=== PATIENT | male | born 1945 | race Caucasian/White ===

== ENCOUNTER 2022-05-17 08:04 | Inpatient (IN) ==
[2022-05-17] MEDS ORDERED: Acetaminophen 325 MG TABLET PO PRN (11:41)
[2022-05-17] MEDS ORDERED: Naloxone 0.4 MG/ML INJ IVP PRN (11:41)
[2022-05-17] MEDS ORDERED: Ondansetron 4 MG/2 ML VIAL IVP PRN (11:41)
[2022-05-17] MEDS ORDERED: *HR* Dextrose 50 % in Water (Syg) 50 ML SYRINGE IVP PRN (11:46)
[2022-05-17] MEDS ORDERED: D5% in Water 1,000 ML IVC PRN (11:46)
[2022-05-17] MEDS ORDERED: Dextrose Gel 15 GM/37.5 ML TUBE PO PRN ×2 (11:46)
[2022-05-17] MEDS ORDERED: Fluticasone Propionate Nasal 50 MCG/SPRAY BOTTLE NS PRN (12:38)
[2022-05-17] MEDS ORDERED: *HR* LORazepam 1 MG TABLET PO SCH (13:00)
[2022-05-17] MEDS: QUEtiapine Fumarate 25 MG TABLET PO SCH ×3 (13:23→21:00)
[2022-05-17] MEDS: *HR* LORazepam 0.5 MG TABLET PO SCH ×3 (13:30→20:59)
[2022-05-17] MEDS: BuPROPion SR (12 HR) 100 MG TABLET PO SCH ×2 (13:30→20:59)
[2022-05-17] MEDS: lisinopriL 5 MG TABLET PO SCH (13:34)
[2022-05-17] MEDS: Ondansetron ODT 4 MG TAB.RAPDIS SL PRN (14:19)
[2022-05-17] MEDS: Insulin LISPRO 300 UNITS/3 ML VIAL SUBQ SCH ×2 (16:42→21:32)
[2022-05-17] MEDS: traZODone 50 MG TABLET PO SCH (20:59)
[2022-05-17] MEDS: Melatonin 3 MG TABLET PO SCH (20:59)
[2022-05-18 06:33] LABS: Hematocrit 35.8 % (37.5-50.1); Hemoglobin 11.9 g/dL (12.9-16.9); Mean Corpuscular HGB Conc 33.2 g/dL (31.6-35.5); Mean Corpuscular Hemoglobin 30.1 pg (28.0-33.3); Mean Corpuscular Volume 90.6 fL (83.0-100.0); Mean Platelet Volume 8.7 fL (9.4-12.4); Platelet Count 208 K/mcL (140-400); Red Blood Count 3.95 M/mcL (4.19-5.50); White Blood Count 8.4 K/mcL (4.3-11.1)
[2022-05-18 06:48] LABS: BUN/Creatinine Ratio 16 (6-26); Blood Urea Nitrogen 21 mg/dL (8-23); Calcium 8.2 mg/dL (8.6-10.3); Carbon Dioxide 25 mEq/L (23-29); Chloride 100 mEq/L (98-107); Glucose 116 mg/dL (70-105); Osmolality,Calculated 276 (280-300); Potassium 4.8 mEq/L (3.5-5.1); Sodium 131 mEq/L (136-145); eGFR For African Americans > 60 (> 60); eGFR For Non-African Americans 53 (> 60)
[2022-05-18] MEDS: Insulin LISPRO 300 UNITS/3 ML VIAL SUBQ SCH ×4 (06:56→20:06)
[2022-05-18] MEDS ORDERED: NON-FORMULARY MEDICATION 1 EACH EACH (Cinnamon Bark [Cinnamon] 500 MG Capsule) PO SCH (09:00)
[2022-05-18] MEDS: Multivit/Ca/Min/Fe/FA 1 TAB TABLET PO SCH (09:36)
[2022-05-18] MEDS: Loratadine 10 MG TABLET PO SCH (09:36)
[2022-05-18] MEDS: QUEtiapine Fumarate 25 MG TABLET PO SCH ×4 (09:36→20:05)
[2022-05-18] MEDS: Finasteride 5 MG TABLET PO SCH (09:36)
[2022-05-18] MEDS: Aspirin Enteric Coated 81 MG Tablet PO SCH (09:36)
[2022-05-18] MEDS: *HR* LORazepam 0.5 MG TABLET PO SCH ×3 (09:36→20:10)
[2022-05-18] MEDS: BuPROPion SR (12 HR) 100 MG TABLET PO SCH ×2 (09:37→20:05)
[2022-05-18] MEDS: lisinopriL 5 MG TABLET PO SCH (09:37)
[2022-05-18] MEDS: 0.9 % Sodium Chloride 1,000 ML IVC SCH (16:09)
[2022-05-18] MEDS: Melatonin 3 MG TABLET PO SCH (20:05)
[2022-05-18] MEDS: traZODone 50 MG TABLET PO SCH (20:06)
[2022-05-19] MEDS: 0.9 % Sodium Chloride 1,000 ML IVC SCH ×3 (02:45→23:14)
[2022-05-19] MEDS ORDERED: *HR* Enoxaparin 30 MG/0.3 ML SYRINGE SQ SCH (06:00)
[2022-05-19] MEDS: Insulin LISPRO 300 UNITS/3 ML VIAL SUBQ SCH ×4 (07:10→19:49)
[2022-05-19 07:21] LABS: BUN/Creatinine Ratio 13 (6-26); Blood Urea Nitrogen 13 mg/dL (8-23); Carbon Dioxide 26 mEq/L (23-29); Chloride 105 mEq/L (98-107); Glucose 117 mg/dL (70-105); Magnesium 1.8 mg/dL (1.6-2.6); Osmolality,Calculated 285 (280-300); Potassium 4.3 mEq/L (3.5-5.1); Sodium 137 mEq/L (136-145); eGFR For African Americans > 60 (> 60); eGFR For Non-African Americans > 60 (> 60)
[2022-05-19] MEDS: Loratadine 10 MG TABLET PO SCH (08:20)
[2022-05-19] MEDS: QUEtiapine Fumarate 25 MG TABLET PO SCH ×4 (08:20→19:39)
[2022-05-19] MEDS: Aspirin Enteric Coated 81 MG Tablet PO SCH (08:20)
[2022-05-19] MEDS: *HR* LORazepam 0.5 MG TABLET PO SCH ×3 (08:20→19:39)
[2022-05-19] MEDS: Finasteride 5 MG TABLET PO SCH (08:21)
[2022-05-19] MEDS: Multivit/Ca/Min/Fe/FA 1 TAB TABLET PO SCH (08:21)
[2022-05-19] MEDS: BuPROPion SR (12 HR) 100 MG TABLET PO SCH ×2 (08:21→19:38)
[2022-05-19] MEDS: Melatonin 3 MG TABLET PO SCH (19:38)
[2022-05-19] MEDS: traZODone 50 MG TABLET PO SCH (19:39)
[2022-05-19] MEDS: traZODone 50 MG TABLET PO PRN (23:22)
[2022-05-20] MEDS: traZODone 50 MG TABLET PO PRN ×2 (05:27→23:24)
[2022-05-20] MEDS ORDERED: *HR* Enoxaparin 40 MG/0.4 ML SYRINGE SQ SCH (06:00)
[2022-05-20 08:27] LABS: Hematocrit 40.5 % (37.5-50.1); Hemoglobin 13.6 g/dL (12.9-16.9); Mean Corpuscular HGB Conc 33.6 g/dL (31.6-35.5); Mean Corpuscular Hemoglobin 30.8 pg (28.0-33.3); Mean Corpuscular Volume 91.8 fL (83.0-100.0); Mean Platelet Volume 9.1 fL (9.4-12.4); Platelet Count 242 K/mcL (140-400); Red Blood Count 4.41 M/mcL (4.19-5.50); Red Cell Distribution Width 13.8 % (11.5-14.5); White Blood Count 6.2 K/mcL (4.3-11.1)
[2022-05-20 08:39] LABS: BUN/Creatinine Ratio 11 (6-26); Blood Urea Nitrogen 10 mg/dL (8-23); Calcium 8.9 mg/dL (8.6-10.3); Carbon Dioxide 26 mEq/L (23-29); Chloride 101 mEq/L (98-107); Glucose 119 mg/dL (70-105); Osmolality,Calculated 280 (280-300); Potassium 4.3 mEq/L (3.5-5.1); Sodium 135 mEq/L (136-145); eGFR For African Americans > 60 (> 60); eGFR For Non-African Americans > 60 (> 60)
[2022-05-20] MEDS: Insulin LISPRO 300 UNITS/3 ML VIAL SUBQ SCH ×4 (09:02→21:27)
[2022-05-20] MEDS: Aspirin Enteric Coated 81 MG Tablet PO SCH (09:03)
[2022-05-20] MEDS: *HR* LORazepam 0.5 MG TABLET PO SCH ×4 (09:03→20:29)
[2022-05-20] MEDS: Multivit/Ca/Min/Fe/FA 1 TAB TABLET PO SCH (09:03)
[2022-05-20] MEDS: QUEtiapine Fumarate 25 MG TABLET PO SCH ×4 (09:03→20:29)
[2022-05-20] MEDS: 0.9 % Sodium Chloride 1,000 ML IVC SCH (09:03)
[2022-05-20] MEDS: BuPROPion SR (12 HR) 100 MG TABLET PO SCH ×2 (09:03→20:28)
[2022-05-20] MEDS: Loratadine 10 MG TABLET PO SCH (09:03)
[2022-05-20] MEDS: Finasteride 5 MG TABLET PO SCH (09:03)
[2022-05-20] MEDS: Ondansetron ODT 4 MG TAB.RAPDIS SL PRN ×2 (09:10→20:29)
[2022-05-20] MEDS: Sennosides/Docusate Sodium TABLET PO SCH ×2 (11:38→20:29)
[2022-05-20] MEDS: polyethylene glycoL 3350 17 GM POWD.PACK PO SCH (11:38)
[2022-05-20] MEDS: traZODone 50 MG TABLET PO SCH (20:28)
[2022-05-20] MEDS: Melatonin 3 MG TABLET PO SCH (20:28)
[2022-05-21] MEDS: Ondansetron ODT 4 MG TAB.RAPDIS SL PRN ×2 (05:48→09:29)
[2022-05-21 07:12] LABS: Hemoglobin 13.5 g/dL (12.9-16.9); Mean Corpuscular HGB Conc 34.6 g/dL (31.6-35.5); Mean Corpuscular Volume 89.4 fL (83.0-100.0); Mean Platelet Volume 8.9 fL (9.4-12.4); Platelet Count 259 K/mcL (140-400); Red Blood Count 4.36 M/mcL (4.19-5.50); Red Cell Distribution Width 13.6 % (11.5-14.5); White Blood Count 6.8 K/mcL (4.3-11.1)
[2022-05-21 07:46] LABS: BUN/Creatinine Ratio 10 (6-26); Blood Urea Nitrogen 10 mg/dL (8-23); Carbon Dioxide 27 mEq/L (23-29); Chloride 99 mEq/L (98-107); Glucose 117 mg/dL (70-105); Osmolality,Calculated 276 (280-300); Potassium 4.3 mEq/L (3.5-5.1); Sodium 133 mEq/L (136-145); eGFR For African Americans > 60 (> 60); eGFR For Non-African Americans > 60 (> 60)
[2022-05-21] MEDS: Finasteride 5 MG TABLET PO SCH (09:26)
[2022-05-21] MEDS: BuPROPion SR (12 HR) 100 MG TABLET PO SCH (09:27)
[2022-05-21] MEDS: Multivit/Ca/Min/Fe/FA 1 TAB TABLET PO SCH (09:27)
[2022-05-21] MEDS: *HR* LORazepam 0.5 MG TABLET PO SCH ×3 (09:27→18:25)
[2022-05-21] MEDS: Sennosides/Docusate Sodium TABLET PO SCH (09:27)
[2022-05-21] MEDS: Aspirin Enteric Coated 81 MG Tablet PO SCH (09:27)
[2022-05-21] MEDS: polyethylene glycoL 3350 17 GM POWD.PACK PO SCH (09:28)
[2022-05-21] MEDS: Loratadine 10 MG TABLET PO SCH (09:28)
[2022-05-21] MEDS: QUEtiapine Fumarate 25 MG TABLET PO SCH ×3 (09:28→18:25)
[2022-05-21] MEDS: Insulin LISPRO 300 UNITS/3 ML VIAL SUBQ SCH ×3 (09:32→18:09)
[2022-05-21] MEDS ORDERED: Mag Hydrox/Al Hydrox/Simeth 30 ML UDC PO PRN (12:45)
[2022-05-21 18:45] VITALS: BP 132/82; PULSE 82; RESP 16; TEMP 98.1; O2SAT 94
== END 2022-05-21 19:00 | disposition other institution (70) | DRG 683 ==
LOC: INPPIK
PROVIDERS: ADMIT Nurse Practitioner Family; ATTEND Nurse Practitioner Family

== ENCOUNTER 2022-05-21 09:56 | Inpatient (IN) ==
[2022-05-21] MEDS ORDERED: Fluticasone Propionate Nasal 50 MCG/SPRAY BOTTLE NS PRN (15:39)
[2022-05-21] MEDS: BuPROPion SR (12 HR) 100 MG TABLET PO SCH (21:40)
[2022-05-21] MEDS: Ondansetron ODT 4 MG TAB.RAPDIS SL PRN (21:41)
[2022-05-21] MEDS: traZODone 50 MG TABLET PO SCH (21:41)
[2022-05-21] MEDS: Melatonin 3 MG TABLET PO SCH (21:42)
[2022-05-21] MEDS: QUEtiapine Fumarate 25 MG TABLET PO SCH (21:42)
[2022-05-21] MEDS: *HR* LORazepam 0.5 MG TABLET PO SCH (21:42)
[2022-05-22] MEDS ORDERED: *HR* Enoxaparin 40 MG/0.4 ML SYRINGE SQ SCH (07:00)
[2022-05-22 07:29] LABS: Basophils % 0.4 %; Eosinophils # 0.2 K/mcL (0.0-0.6); Eosinophils % 2.9 %; Hematocrit 38.3 % (37.5-50.1); Hemoglobin 12.7 g/dL (12.9-16.9); Immature Granulocytes % 0.4 % (0-4); Lymphocytes # 1.3 K/mcL (0.6-4.6); Lymphocytes % 17.2 %; Mean Corpuscular HGB Conc 33.2 g/dL (31.6-35.5); Mean Corpuscular Hemoglobin 30.1 pg (28.0-33.3); Mean Corpuscular Volume 90.8 fL (83.0-100.0); Mean Platelet Volume 8.8 fL (9.4-12.4); Monocytes # 0.7 K/mcL (0.0-1.3); Monocytes % 8.9 %; Neutrophils # 5.3 K/mcL (1.6-8.9); Platelet Count 257 K/mcL (140-400); Red Blood Count 4.22 M/mcL (4.19-5.50); Red Cell Distribution Width 13.7 % (11.5-14.5); Segmented Neutrophils % 70.2 %; White Blood Count 7.6 K/mcL (4.3-11.1)
[2022-05-22 07:41] LABS: BUN/Creatinine Ratio 11 (6-26); Blood Urea Nitrogen 11 mg/dL (8-23); Calcium 8.5 mg/dL (8.6-10.3); Carbon Dioxide 26 mEq/L (23-29); Chloride 101 mEq/L (98-107); Glucose 113 mg/dL (70-105); Osmolality,Calculated 278 (280-300); Potassium 4.3 mEq/L (3.5-5.1); Sodium 134 mEq/L (136-145); eGFR For African Americans > 60 (> 60); eGFR For Non-African Americans > 60 (> 60)
[2022-05-22] MEDS: QUEtiapine Fumarate 25 MG TABLET PO SCH ×4 (07:53→22:32)
[2022-05-22] MEDS: *HR* LORazepam 0.5 MG TABLET PO SCH ×4 (07:53→22:31)
[2022-05-22] MEDS: BuPROPion SR (12 HR) 100 MG TABLET PO SCH ×2 (07:54→22:30)
[2022-05-22] MEDS: lisinopriL 5 MG TABLET PO SCH (08:01)
[2022-05-22] MEDS: Aspirin Enteric Coated 81 MG Tablet PO SCH (08:02)
[2022-05-22] MEDS: Finasteride 5 MG TABLET PO SCH (08:02)
[2022-05-22] MEDS: *HR* Metformin 500 MG TABLET PO SCH (08:02)
[2022-05-22] MEDS: Loratadine 10 MG TABLET PO SCH (08:03)
[2022-05-22] MEDS: (Cinnamon Bark [Cinnamon] 500 MG Capsule) PO SCH (12:21)
[2022-05-22] MEDS: Melatonin 3 MG TABLET PO SCH (22:31)
[2022-05-22] MEDS: traZODone 50 MG TABLET PO SCH (22:31)
[2022-05-23] MEDS ORDERED: Bisacodyl 10 MG RECTAL SUPPOSITORY RC PRN (01:10)
[2022-05-23] MEDS: traZODone 50 MG TABLET PO PRN (03:24)
[2022-05-23] MEDS: lisinopriL 5 MG TABLET PO SCH (09:35)
[2022-05-23] MEDS: Aspirin Enteric Coated 81 MG Tablet PO SCH (09:35)
[2022-05-23] MEDS: Finasteride 5 MG TABLET PO SCH (09:35)
[2022-05-23] MEDS: Loratadine 10 MG TABLET PO SCH (09:36)
[2022-05-23] MEDS: *HR* LORazepam 0.5 MG TABLET PO SCH ×4 (09:36→19:55)
[2022-05-23] MEDS: Ondansetron ODT 4 MG TAB.RAPDIS SL PRN (09:36)
[2022-05-23] MEDS: QUEtiapine Fumarate 25 MG TABLET PO SCH ×4 (09:38→19:55)
[2022-05-23] MEDS: BuPROPion SR (12 HR) 100 MG TABLET PO SCH ×2 (09:39→19:53)
[2022-05-23] MEDS: *HR* Metformin 500 MG TABLET PO SCH (09:39)
[2022-05-23] MEDS: Sennosides/Docusate Sodium TABLET PO SCH ×2 (09:39→19:55)
[2022-05-23] MEDS: Mag Hydrox/Al Hydrox/Simeth 30 ML UDC PO PRN (09:40)
[2022-05-23] MEDS: polyethylene glycoL 3350 17 GM POWD.PACK PO SCH (09:41)
[2022-05-23] MEDS: (Cinnamon Bark [Cinnamon] 500 MG Capsule) PO SCH (09:42)
[2022-05-23] MEDS: Melatonin 3 MG TABLET PO SCH (19:53)
[2022-05-23] MEDS: traZODone 50 MG TABLET PO SCH (19:54)
[2022-05-24] MEDS: traZODone 50 MG TABLET PO PRN (04:14)
[2022-05-24] MEDS: Sennosides/Docusate Sodium TABLET PO SCH ×2 (09:02→20:11)
[2022-05-24] MEDS: BuPROPion SR (12 HR) 100 MG TABLET PO SCH ×2 (09:02→20:10)
[2022-05-24] MEDS: *HR* Metformin 500 MG TABLET PO SCH (09:03)
[2022-05-24] MEDS: Aspirin Enteric Coated 81 MG Tablet PO SCH (09:03)
[2022-05-24] MEDS: Finasteride 5 MG TABLET PO SCH (09:03)
[2022-05-24] MEDS: QUEtiapine Fumarate 25 MG TABLET PO SCH ×4 (09:04→20:11)
[2022-05-24] MEDS: *HR* LORazepam 0.5 MG TABLET PO SCH ×4 (09:04→20:11)
[2022-05-24] MEDS: Ondansetron ODT 4 MG TAB.RAPDIS SL PRN (09:04)
[2022-05-24] MEDS: Loratadine 10 MG TABLET PO SCH (09:04)
[2022-05-24] MEDS: lisinopriL 5 MG TABLET PO SCH (09:04)
[2022-05-24] MEDS: (Cinnamon Bark [Cinnamon] 500 MG Capsule) PO SCH (09:05)
[2022-05-24] MEDS: polyethylene glycoL 3350 17 GM POWD.PACK PO SCH (09:06)
[2022-05-24] MEDS: Melatonin 3 MG TABLET PO SCH (20:10)
[2022-05-24] MEDS: traZODone 50 MG TABLET PO SCH (20:11)
[2022-05-25] MEDS: *HR* Metformin 500 MG TABLET PO SCH (08:07)
[2022-05-25] MEDS: BuPROPion SR (12 HR) 100 MG TABLET PO SCH ×2 (08:07→20:38)
[2022-05-25] MEDS: Finasteride 5 MG TABLET PO SCH (08:08)
[2022-05-25] MEDS: QUEtiapine Fumarate 25 MG TABLET PO SCH ×4 (08:08→20:38)
[2022-05-25] MEDS: Aspirin Enteric Coated 81 MG Tablet PO SCH (08:08)
[2022-05-25] MEDS: Loratadine 10 MG TABLET PO SCH (08:08)
[2022-05-25] MEDS: lisinopriL 5 MG TABLET PO SCH (08:08)
[2022-05-25] MEDS: *HR* LORazepam 0.5 MG TABLET PO SCH ×4 (08:08→20:39)
[2022-05-25] MEDS: Sennosides/Docusate Sodium TABLET PO SCH ×2 (08:09→20:39)
[2022-05-25] MEDS: polyethylene glycoL 3350 17 GM POWD.PACK PO SCH (08:09)
[2022-05-25] MEDS: (Cinnamon Bark [Cinnamon] 500 MG Capsule) PO SCH (08:09)
[2022-05-25] MEDS: Ondansetron ODT 4 MG TAB.RAPDIS SL PRN (16:45)
[2022-05-25] MEDS: traZODone 50 MG TABLET PO SCH (20:38)
[2022-05-25] MEDS: Melatonin 3 MG TABLET PO SCH (20:38)
[2022-05-26] MEDS: traZODone 50 MG TABLET PO PRN ×2 (01:06→22:56)
[2022-05-26] MEDS: Ondansetron ODT 4 MG TAB.RAPDIS SL PRN (07:32)
[2022-05-26] MEDS: polyethylene glycoL 3350 17 GM POWD.PACK PO SCH (09:42)
[2022-05-26] MEDS: QUEtiapine Fumarate 25 MG TABLET PO SCH ×4 (09:44→21:49)
[2022-05-26] MEDS: Sennosides/Docusate Sodium TABLET PO SCH ×2 (09:44→21:46)
[2022-05-26] MEDS: lisinopriL 5 MG TABLET PO SCH (09:44)
[2022-05-26] MEDS: Finasteride 5 MG TABLET PO SCH (09:44)
[2022-05-26] MEDS: BuPROPion SR (12 HR) 100 MG TABLET PO SCH ×2 (09:44→21:49)
[2022-05-26] MEDS: *HR* LORazepam 0.5 MG TABLET PO SCH ×4 (09:44→21:47)
[2022-05-26] MEDS: Aspirin Enteric Coated 81 MG Tablet PO SCH (09:44)
[2022-05-26] MEDS: Loratadine 10 MG TABLET PO SCH (09:44)
[2022-05-26] MEDS: *HR* Metformin 500 MG TABLET PO SCH (09:45)
[2022-05-26] MEDS: (Cinnamon Bark [Cinnamon] 500 MG Capsule) PO SCH (09:45)
[2022-05-26] MEDS: Mag Hydrox/Al Hydrox/Simeth 30 ML UDC PO PRN (11:51)
[2022-05-26] MEDS: calcium polycarbophiL 625 MG TABLET PO SCH (18:07)
[2022-05-26] MEDS: Melatonin 3 MG TABLET PO SCH (21:46)
[2022-05-26] MEDS: traZODone 50 MG TABLET PO SCH (21:49)
[2022-05-27 01:53] LABS: Basophils # 0.1 K/mcL (0.0-0.2); Basophils % 0.6 %; Eosinophils # 0.2 K/mcL (0.0-0.6); Eosinophils % 2.1 %; Hematocrit 35.3 % (37.5-50.1); Hemoglobin 11.9 g/dL (12.9-16.9); Immature Granulocytes % 0.9 % (0-4); Lymphocytes # 1.4 K/mcL (0.6-4.6); Mean Corpuscular HGB Conc 33.7 g/dL (31.6-35.5); Mean Corpuscular Hemoglobin 30.2 pg (28.0-33.3); Mean Corpuscular Volume 89.6 fL (83.0-100.0); Mean Platelet Volume 8.5 fL (9.4-12.4); Monocytes # 0.7 K/mcL (0.0-1.3); Monocytes % 7.5 %; Neutrophils # 6.7 K/mcL (1.6-8.9); Platelet Count 237 K/mcL (140-400); Red Blood Count 3.94 M/mcL (4.19-5.50); Red Cell Distribution Width 13.7 % (11.5-14.5); Segmented Neutrophils % 73.9 %
[2022-05-27 02:12] LABS: BUN/Creatinine Ratio 13 (6-26); Blood Urea Nitrogen 12 mg/dL (8-23); Calcium 8.8 mg/dL (8.6-10.3); Carbon Dioxide 25 mEq/L (23-29); Chloride 100 mEq/L (98-107); Glucose 117 mg/dL (70-105); Osmolality,Calculated 277 (280-300); Potassium 3.9 mEq/L (3.5-5.1); Sodium 133 mEq/L (136-145); eGFR For African Americans > 60 (> 60); eGFR For Non-African Americans > 60 (> 60)
[2022-05-27] MEDS: Ondansetron ODT 4 MG TAB.RAPDIS SL PRN ×2 (02:15→20:06)
[2022-05-27] MEDS: polyethylene glycoL 3350 17 GM POWD.PACK PO SCH (07:56)
[2022-05-27] MEDS: *HR* Metformin 500 MG TABLET PO SCH (07:56)
[2022-05-27] MEDS: BuPROPion SR (12 HR) 100 MG TABLET PO SCH ×2 (07:56→20:05)
[2022-05-27] MEDS: lisinopriL 5 MG TABLET PO SCH (07:56)
[2022-05-27] MEDS: Sennosides/Docusate Sodium TABLET PO SCH ×2 (07:57→20:06)
[2022-05-27] MEDS: calcium polycarbophiL 625 MG TABLET PO SCH (07:57)
[2022-05-27] MEDS: Finasteride 5 MG TABLET PO SCH (07:57)
[2022-05-27] MEDS: Loratadine 10 MG TABLET PO SCH (07:57)
[2022-05-27] MEDS: Aspirin Enteric Coated 81 MG Tablet PO SCH (07:57)
[2022-05-27] MEDS: *HR* LORazepam 0.5 MG TABLET PO SCH ×4 (07:57→20:05)
[2022-05-27] MEDS: QUEtiapine Fumarate 25 MG TABLET PO SCH ×4 (07:57→20:05)
[2022-05-27] MEDS: Melatonin 3 MG TABLET PO SCH (20:05)
[2022-05-27] MEDS: traZODone 50 MG TABLET PO SCH (20:06)
[2022-05-27 21:29] LABS: Basophils # 0.1 K/mcL (0.0-0.2); Basophils % 0.7 %; Eosinophils # 0.2 K/mcL (0.0-0.6); Eosinophils % 2.1 %; Hemoglobin 11.7 g/dL (12.9-16.9); Immature Granulocytes % 0.6 % (0-4); Lymphocytes % 13.9 %; Mean Corpuscular HGB Conc 32.5 g/dL (31.6-35.5); Mean Corpuscular Hemoglobin 29.8 pg (28.0-33.3); Mean Corpuscular Volume 91.8 fL (83.0-100.0); Monocytes # 0.5 K/mcL (0.0-1.3); Monocytes % 6.8 %; Neutrophils # 5.3 K/mcL (1.6-8.9); Platelet Count 244 K/mcL (140-400); Red Blood Count 3.92 M/mcL (4.19-5.50); Red Cell Distribution Width 14.2 % (11.5-14.5); Segmented Neutrophils % 75.9 %
[2022-05-27] MEDS: traZODone 50 MG TABLET PO PRN (22:28)
[2022-05-27] MEDS: Mag Hydrox/Al Hydrox/Simeth 30 ML UDC PO PRN (22:31)
[2022-05-28] MEDS ORDERED: *HR* OxyCODONE Immed Rel 5 MG TABLET PO ONE ×2 (01:09→03:48)
[2022-05-28] MEDS ORDERED: *HR* LORazepam 0.5 MG TABLET PO ONE (05:45)
[2022-05-28 06:05] LABS: Hematocrit 37.1 % (37.5-50.1); Hemoglobin 12.4 g/dL (12.9-16.9); Mean Corpuscular HGB Conc 33.4 g/dL (31.6-35.5); Mean Corpuscular Volume 89.8 fL (83.0-100.0); Mean Platelet Volume 8.5 fL (9.4-12.4); Platelet Count 248 K/mcL (140-400); Red Blood Count 4.13 M/mcL (4.19-5.50); Red Cell Distribution Width 13.6 % (11.5-14.5); White Blood Count 8.9 K/mcL (4.3-11.1)
[2022-05-28] MEDS: Aspirin Enteric Coated 81 MG Tablet PO SCH (08:30)
[2022-05-28] MEDS: Sennosides/Docusate Sodium TABLET PO SCH ×2 (08:30→20:06)
[2022-05-28] MEDS: BuPROPion SR (12 HR) 100 MG TABLET PO SCH ×2 (08:30→20:05)
[2022-05-28] MEDS: Finasteride 5 MG TABLET PO SCH (08:30)
[2022-05-28] MEDS: QUEtiapine Fumarate 25 MG TABLET PO SCH ×4 (08:30→20:05)
[2022-05-28] MEDS: *HR* Metformin 500 MG TABLET PO SCH (08:31)
[2022-05-28] MEDS: lisinopriL 5 MG TABLET PO SCH (08:31)
[2022-05-28] MEDS: *HR* LORazepam 0.5 MG TABLET PO SCH ×4 (08:31→21:05)
[2022-05-28] MEDS: Loratadine 10 MG TABLET PO SCH (08:31)
[2022-05-28] MEDS: calcium polycarbophiL 625 MG TABLET PO SCH (08:32)
[2022-05-28] MEDS: polyethylene glycoL 3350 17 GM POWD.PACK PO SCH (08:32)
[2022-05-28] MEDS: Melatonin 3 MG TABLET PO SCH (20:05)
[2022-05-28] MEDS: traZODone 50 MG TABLET PO SCH (21:05)
[2022-05-29] MEDS: Aspirin Enteric Coated 81 MG Tablet PO SCH (07:51)
[2022-05-29] MEDS: lisinopriL 5 MG TABLET PO SCH (07:51)
[2022-05-29] MEDS: Finasteride 5 MG TABLET PO SCH (07:51)
[2022-05-29] MEDS: Loratadine 10 MG TABLET PO SCH (07:52)
[2022-05-29] MEDS: QUEtiapine Fumarate 25 MG TABLET PO SCH ×4 (07:52→23:23)
[2022-05-29] MEDS: *HR* Metformin 500 MG TABLET PO SCH (07:52)
[2022-05-29] MEDS: *HR* LORazepam 0.5 MG TABLET PO SCH ×4 (07:52→23:24)
[2022-05-29] MEDS: BuPROPion SR (12 HR) 100 MG TABLET PO SCH ×2 (07:52→23:23)
[2022-05-29] MEDS: Sennosides/Docusate Sodium TABLET PO SCH ×2 (07:53→23:21)
[2022-05-29] MEDS: calcium polycarbophiL 625 MG TABLET PO SCH (07:53)
[2022-05-29] MEDS: polyethylene glycoL 3350 17 GM POWD.PACK PO SCH (07:53)
[2022-05-29] MEDS: Ondansetron ODT 4 MG TAB.RAPDIS SL PRN (11:26)
[2022-05-29] MEDS: Hyoscyamine SL 0.125 MG TAB.SUBL SL PRN (16:18)
[2022-05-29] MEDS: Melatonin 3 MG TABLET PO SCH (23:22)
[2022-05-29] MEDS: traZODone 50 MG TABLET PO SCH (23:24)
[2022-05-30] MEDS: Aspirin Enteric Coated 81 MG Tablet PO SCH (07:42)
[2022-05-30] MEDS: polyethylene glycoL 3350 17 GM POWD.PACK PO SCH (07:42)
[2022-05-30] MEDS: *HR* Metformin 500 MG TABLET PO SCH (07:42)
[2022-05-30] MEDS: Sennosides/Docusate Sodium TABLET PO SCH ×2 (07:42→20:14)
[2022-05-30] MEDS: BuPROPion SR (12 HR) 100 MG TABLET PO SCH ×2 (07:43→20:14)
[2022-05-30] MEDS: QUEtiapine Fumarate 25 MG TABLET PO SCH ×4 (07:43→20:14)
[2022-05-30] MEDS: Loratadine 10 MG TABLET PO SCH (07:43)
[2022-05-30] MEDS: Finasteride 5 MG TABLET PO SCH (07:43)
[2022-05-30] MEDS: *HR* LORazepam 0.5 MG TABLET PO SCH ×4 (07:43→20:13)
[2022-05-30] MEDS: lisinopriL 5 MG TABLET PO SCH (07:43)
[2022-05-30] MEDS: calcium polycarbophiL 625 MG TABLET PO SCH (07:43)
[2022-05-30] MEDS: Ondansetron ODT 4 MG TAB.RAPDIS SL PRN (12:04)
[2022-05-30] MEDS: Hyoscyamine SL 0.125 MG TAB.SUBL SL PRN (12:04)
[2022-05-30] MEDS: traZODone 50 MG TABLET PO SCH (20:14)
[2022-05-30] MEDS: Melatonin 3 MG TABLET PO SCH (20:15)
[2022-05-31] MEDS: traZODone 50 MG TABLET PO PRN (04:21)
[2022-05-31 06:20] VITALS: BP 145/85; PULSE 81; RESP 16; TEMP 97.9; O2SAT 96
[2022-05-31] MEDS: Loratadine 10 MG TABLET PO SCH (08:31)
[2022-05-31] MEDS: calcium polycarbophiL 625 MG TABLET PO SCH (08:31)
[2022-05-31] MEDS: BuPROPion SR (12 HR) 100 MG TABLET PO SCH (08:31)
[2022-05-31] MEDS: QUEtiapine Fumarate 25 MG TABLET PO SCH ×2 (08:32→13:09)
[2022-05-31] MEDS: *HR* Metformin 500 MG TABLET PO SCH (08:32)
[2022-05-31] MEDS: Sennosides/Docusate Sodium TABLET PO SCH (08:32)
[2022-05-31] MEDS: lisinopriL 5 MG TABLET PO SCH (08:32)
[2022-05-31] MEDS: Finasteride 5 MG TABLET PO SCH (08:32)
[2022-05-31] MEDS: *HR* LORazepam 0.5 MG TABLET PO SCH ×2 (08:32→13:09)
[2022-05-31] MEDS: Aspirin Enteric Coated 81 MG Tablet PO SCH (08:32)
[2022-05-31] MEDS: polyethylene glycoL 3350 17 GM POWD.PACK PO SCH (08:34)
[2022-05-31] MEDS ORDERED: Iopamidol - 370 500 ML MLS IVP ONE (11:22)
[2022-05-31] MEDS: Ondansetron ODT 4 MG TAB.RAPDIS SL PRN (11:37)
== END 2022-05-31 16:05 | disposition home or self-care (01) | DRG 696 ==
LOC: INPPIK 19:45
PROVIDERS: ADMIT Family Medicine; ATTEND Emergency Medicine